=== PATIENT | female | born 1990 | race Caucasian/White ===

== ENCOUNTER → 2021-07-08 | Outpatient (CLI) | payer OTHER ==
[2021-07-09 05:07] LABS: RUBEOLA (MEASLES) IGG >300.0 AU/mL (Immune >16.4)
== END | disposition home or self-care (01) ==
LOC: LABPV 14:10
PROVIDERS: ATTEND Internal Medicine
DX: Z02.1 Encounter for pre-employment examination (principal)
CPT/HCPCS: 86706; 86735; 86762; 86765; 86787

== ENCOUNTER → 2022-01-19 | Outpatient (CLI) | payer OTHER | END | disposition home or self-care (01) | LOC: RADMN 17:15 | PROVIDERS: ATTEND Internal Medicine | DX: E06.5 Other chronic thyroiditis (principal); R94.6 Abnormal results of thyroid function studies | CPT/HCPCS: 76536 ==

== ENCOUNTER → 2022-03-13 | Outpatient (CLI) | payer OTHER | END | disposition home or self-care (01) | LOC: MSR 08:50 | PROVIDERS: ATTEND Specialist | DX: J32.4 Chronic pansinusitis (principal); R41.3 Other amnesia | CPT/HCPCS: 70551; 95816 ==

== ENCOUNTER → 2022-05-19 | Outpatient (CLI) | payer OTHER | END | disposition home or self-care (01) | LOC: RADMN 09:07 | PROVIDERS: ATTEND Internal Medicine | DX: M47.814 Spondylosis without myelopathy or radiculopathy, thoracic region (principal); Z23 Encounter for immunization | CPT/HCPCS: 71045 ==

== ENCOUNTER 2023-09-06 12:38 | Emergency (ER) | payer OTHER ==
[~2023-09-06] VITALS: Ht 165.1 cm; Wt 50.0 kg
[2023-09-06 12:40] VITALS: TEMP 98
[2023-09-06] MEDS ORDERED: ACETAMINOPHEN/CODEINE 300-30 MG TABLET PO ONE (14:45)
[2023-09-06] MEDS ORDERED: IBUPROFEN 200 MG TABLET PO ONE (14:45)
[2023-09-06 15:09] VITALS: BP 122/70; PULSE 76; RESP 16
[2023-09-06] MEDS ORDERED: METH-659 PO (17:05)
[2023-09-06] MEDS ORDERED: ACET-66 PO (17:05)
== END 2023-09-06 17:47 | disposition home or self-care (01) ==
LOC: EMS 12:52
DX: S13.4XXA Sprain of ligaments of cervical spine, initial encounter (principal); S00.83XA Contusion of other part of head, initial encounter; S60.222A Contusion of left hand, initial encounter; S20.219A Contusion of unspecified front wall of thorax, initial encounter; F17.210 Nicotine dependence, cigarettes, uncomplicated; E05.90 Thyrotoxicosis, unspecified without thyrotoxic crisis or storm; V89.2XXA Person injured in unspecified motor-vehicle accident, traffic, initial encounter; Y93.89 Activity, other specified; Y92.89 Other specified places as the place of occurrence of the external cause; Y99.8 Other external cause status
CPT/HCPCS: 70450; 71045; 72040; 72070; 72100; 93005; 99284

== ENCOUNTER 2024-05-25 20:55 | Emergency (ER) | payer OTHER ==
[~2024-05-25] VITALS: Ht 165.1 cm; Wt 45.0 kg
[~2024-05-25 20:55] MED LIST: ACET-66 PO; METH-659 PO
[2024-05-25 21:07] VITALS: TEMP 98.7
[2024-05-25 21:58] VITALS: BP 134/81; PULSE 69; RESP 18; O2SAT 98
== END 2024-05-25 23:08 | disposition home or self-care (01) ==
LOC: EMS 20:55
DX: T45.0X1A Poisoning by antiallergic and antiemetic drugs, accidental (unintentional), initial encounter (principal); F42.9 Obsessive-compulsive disorder, unspecified; E06.9 Thyroiditis, unspecified; F32.A Depression, unspecified; F17.210 Nicotine dependence, cigarettes, uncomplicated; Y92.89 Other specified places as the place of occurrence of the external cause
CPT/HCPCS: 99281; Z7502